=== PATIENT | female | born 1955 | race Caucasian/White ===

== ENCOUNTER → 2018-05-18 | Outpatient (CLI) | payer OTHER ==
--- NOTE | 2018-05-18 13:02 | RAD ---
EXAM: Maxillofacial bone CT without contrast. HISTORY: Fall. TECHNIQUE: Computed tomographic images of the maxillofacial bones were obtained without contrast. *One or more of the following individualized dose reduction techniques were utilized for this examination: 1. Automated exposure control. 2. Adjustment of the mA and/or kV according to patient size. 3. Use of iterative reconstruction technique. COMPARISON: None. FINDINGS: There is a large left periorbital and anterior left scalp soft tissue hematoma. No displaced fracture is seen. The globes, lenses, extraocular muscles and optic nerves are symmetric. There is no infiltration of the retrobulbar fat. There is ethmoid and right maxillary sinus mucosal thickening with obstruction of the right ostiomeatal unit. There is leftward nasal septal deviation. The temporomandibular joints are intact. There is a small right maxillary sinus air-fluid level. The mastoid air cells are clear. There is no suspicious calvarial lesion. The visualized portions the brain are unremarkable. IMPRESSION: 1. Left periorbital and inferior left scalp soft tissue hematoma. There is no evidence of acute maxillofacial bone fracture. 2. Right maxillary and ethmoid sinus disease with obstruction of the ostiomeatal unit and a small right maxillary sinus air-fluid level. Electronically signed by: Olamide Burrows MD (05/18/2018 1:00 PM) [id number]
== END | disposition home or self-care (01) ==
LOC: CT 12:24
PROVIDERS: ATTEND Nurse Practitioner Family
DX: S09.0XXA Injury of blood vessels of head, not elsewhere classified, initial encounter (principal); S00.03XA Contusion of scalp, initial encounter; S09.92XA Unspecified injury of nose, initial encounter; J34.2 Deviated nasal septum; J32.0 Chronic maxillary sinusitis; J32.2 Chronic ethmoidal sinusitis; R60.0 Localized edema; I10 Essential (primary) hypertension; E11.9 Type 2 diabetes mellitus without complications; W10.8XXA Fall (on) (from) other stairs and steps, initial encounter; Y93.89 Activity, other specified; Y92.89 Other specified places as the place of occurrence of the external cause; Y99.8 Other external cause status
CPT/HCPCS: 70486